=== PATIENT | female | born 1995 | race Caucasian/White ===

== ENCOUNTER 2018-11-26 14:55 | Outpatient (CLI) | payer MEDICAID ==
--- NOTE | 2018-11-26 16:17 | ULT ---
Pelvic sonogram transabdominal and transvaginal imaging with duplex evaluation HISTORY: Pelvic pain. FINDINGS: Urinary bladder is unremarkable. Uterus has a somewhat arcuate configuration. It measures u p to 6.9 cm. Endometrium is 0.3 cm. Physiologic amount of free fluid within the cul-de-sac. Right ovary is 2.9 cm and left is 2.0 cm. Each has a normal sonographic appearance with good color an d spectral Doppler flow. IMPRESSION: Normal pelvic sonogram.
== END 2018-11-26 14:56 | disposition home or self-care (01) ==
LOC: SCSULT 14:55
PROVIDERS: ATTEND Nurse Practitioner
DX: R10.2 Pelvic and perineal pain (principal)
CPT/HCPCS: 76856